=== PATIENT | female | born 1990 | race Caucasian/White ===

== ENCOUNTER 2018-06-28 07:01 | Emergency (ER) | payer BC ==
[2018-06-28 07:19] VITALS: BP 117/65
--- NOTE | 2018-06-28 07:37 | ED ---
Throat Pain/Nasal Congestion - HPI Summary HPI Summary: 28 yr old with the complaint of sinus pressure, post nasal drip, coughing productive of yellow sputum. The patient has been having chills, myalgias as well. She has a history of asthma, but does not feel this is active at this point. - History of Current Complaint Chief Complaint: UCRespiratory Time Seen by Provider: 06/28/18 07:31 - Allergies/Home Medications Allergies/Adverse Reactions: Allergies Allergy/AdvReac Type Severity Reaction Status Date / Time cefaclor Allergy Unknown Verified 06/28/18 07:13 Reaction Details Home Medications: Home Medications Lisinopril TAB* [Prinivil TAB*] 10 mg PO DAILY 06/28/18 [History Confirmed 06/28] Norgestimate-Ethinyl Estradiol [[place]] 1 tab PO DAILY 06/28/18 [History Confirmed 06/28/18] PMH/Surg Hx/FS Hx/Imm Hx Respiratory History: Reports: Hx Asthma - Surgical History Surgery Procedure, Year, and Place: T&A, WISDOM TEETH 2012 Infectious Disease History: No Infectious Disease History: Denies: Traveled Outside the [place] in Last 30 Days - Family History Known Family History: Positive: None - Social History Alcohol Use: Rare Substance Use Type: Reports: None Smoking Status (MU): Never Smoked Tobacco Review of Systems Positive: Sore Throat, Nasal Discharge Positive: Cough All Other Systems Reviewed And Are Negative: Yes Physical Exam Triage Information Reviewed: Yes Vital Signs On Initial Exam: Initial Vitals Temp Pulse Resp BP Pulse Ox 98.4 F 61 15 117/65 100 06/28/18 07:13 06/28/18 07:13 06/28/18 07:13 06/28/18 07:13 06/28/18 07:13 Vital Signs Reviewed: Yes Appearance: Positive: Well-Appearing, No Pain Distress Skin: Positive: Warm Head/Face: Positive: Normal Head/Face Inspection Eyes: Positive: EOMI ENT: Positive: Pharyngeal erythema, Nasal congestion, Nasal drainage, TMs normal , Sinus tenderness Neck: Positive: Nontender Respiratory/Lung Sounds: Positive: Clear to Auscultation, Breath Sounds Present Cardiovascular: Positive: RRR. Negative: Murmur Abdomen Description: Positive: Nontender Musculoskeletal: Positive: Strength/ROM Intact Neurological: Positive: Sensory/Motor Intact, Alert, Oriented to Person Place, Time, CN Intact II-III, Normal Gait, Speech Normal Psychiatric: Positive: Normal - [place] Coma Scale Best Eye Response: 4 - Spontaneous Best Motor Response: 6 - Obeys Commands Best Verbal Response: 5 - Oriented Coma Scale Total: 15 Diagnostics - Vital Signs Vital Signs Temp Pulse Resp BP Pulse Ox 06/28/18 07:13 98.4 F 61 15 117/65 100 - Laboratory Lab Statement: Any lab studies that have been ordered have been reviewed, and results considered in the medical decision making process. EENT Course/Dx - Course Course Of Treatment: 28 yr old female with Sinusitis. Rx with Biaxin. - Diagnoses Provider Diagnoses: Sinusitis Discharge - Sign-Out/Discharge Documenting (check all that apply): Patient Departure All imaging exams completed and their final reports reviewed: No Studies - Discharge Plan Condition: Good Disposition: HOME Prescriptions: Clarithromycin TAB* [Biaxin 500 MG TAB*] 500 mg PO BID #20 tab Patient Education Materials: Sinusitis (ED) Referrals: Sarath Saab MD [Primary Care Provider] - 2 Days - Billing Disposition and Condition Condition: GOOD Disposition: Home
--- OUTSIDE RECORDS SUMMARY | 2018-06-28 08:21 | XMS REPORT ---
:1990 External Reference #:[id number] Author Organization [facility] Address [address], [address] [place] [address] Phone [phone] Care Team Providers Name Role Phone Neena Mata MD, PHD Care Team Information Wordpress Developer Unavailable Neena Mata MD, PHD Primary Care Physician Unavailable Payers Type Date Identification Numbers Payment Provider Subscriber Commercial Policy Number: [id number] Bobous Marialuisa Branham PayID: [id number] [address] [address] [place] [address] Problems Date Description Provider Status Onset: 08/07/2017 Benign essential hypertension Kaden Morocho MD Active Onset: 12/25/2017 Immunization Neena Mata MD, PHD Active Onset: 12/25/2017 Venereal disease screening Neena Mata MD, PHD Active Family History Date Family Member(s) Problem(s) Comments Father Hypertension Mother No Current Problems First Sister No Current Problems Paternal Grandfather Throat Cancer Paternal Grandmother No Current Problems Maternal Grandfather Diabetes Maternal Grandmother Diabetes Maternal Uncles Colon Cancer Social History Type Date Description Comments Marital Status Single Lives With Alone Diet Patient follows no dietary restrictions Occupation Currently Working Cigarette Use Never Smoked Cigarettes ETOH Use Currently consumes alcohol socially Smoking Patient denies history of smoking Smoking Patient has never smoked Daily Caffeine Patient consumes minimal amounts of caffeine Allergies, Adverse Reactions, Alerts Date Description Reaction Status Severity Comments 12/25/2017 Cefaclor unsure active 08/14/2017 NKDA inactive 12/25/2017 NKDA inactive Medications Medication Date Status Form Strength Qnty SIG Indications Ordering Provider Sprintec 28 06/07/ Active Tablets 0.25-35mg- 90tabs 1 tab by mouth Z79.3 Adolfo, 2018 mcg every day enrico Chaudhary MD, PHD Lisinopril / Active Tablets 10mg 1 by mouth Unknown 0000 every day Multi 00/ Active Tablets 1 by mouth Unknown Vitamin 0000 every day Trinessa / Hx Tablets 0.18/0.215 1 by mouth Unknown (28) 0000 - /0.25 every day 06/07/ mg-35 mcg 2017 Medications Administered in Office Medication Date Status Form Strength Qnty SIG Indications Ordering Provider Theraputic Or Administered Injection Rick Mata 018 Man Chaudhary MD, PHD Immunizations CPT Code Status Date Vaccine Lot # [id number] Given 05/14/2018 Influenza Virus Vaccine, Quadrivalent, 36 Mos+, .5ML [id number] Given 12/25/2017 Gardasil [id number] Given 12/25/2017 Gardasil [id number] Vital Signs Date Vital Result Comment 06/07/2018 BP Systolic 142 mmHg BP Diastolic 68 mmHg Body Temperature 97.5 F Heart Rate 63 /min Respiratory Rate 18 /min Height 63 inches 5'3" Weight 171.00 lb BMI (Body Mass Index) 30.3 kg/m2 BSA (Body Surface Area) 1.81 m2 [place] body weight in kilograms 52 O2 % BldC Oximetry 95 % 12/25/2017 BP Systolic 119 mmHg BP Diastolic 73 mmHg Body Temperature 96.3 F Heart Rate 66 /min Respiratory Rate 16 /min Height 63 inches 5'3" Weight 206.00 lb BMI (Body Mass Index) 36.5 kg/m2 BSA (Body Surface Area) 1.96 m2 [place] body weight in kilograms 52 O2 % BldC Oximetry 98 % 12/11/2017 BP Systolic Sitting Left Arm 146 mmHg BP Diastolic Sitting Left Arm 70 mmHg Heart Rate 82 /min Respiratory Rate 16 /min Height 63 inches 5'3" Weight 213.00 lb BMI (Body Mass Index) 37.7 kg/m2 BSA (Body Surface Area) 1.99 m2 [place] body weight in kilograms 52 08/14/2017 BP Systolic Sitting Left Arm 132 mmHg BP Diastolic Sitting Left Arm 88 mmHg Heart Rate 77 /min Respiratory Rate 16 /min Height 63 inches 5'3" Weight 223.00 lb BMI (Body Mass Index) 39.5 kg/m2 BSA (Body Surface Area) 2.03 m2 [place] body weight in kilograms 52 Results Test Date Test Result H/L Range Note Laboratory test 12/25/2017 Treponema Antibody Negative Negative 1 finding [place] HIV Screen 4TH Gen 12/25/2017 HIV Screen 4th Non Reactive Non Reactive 1 , 2 Reflex Generation wRfx Laboratory test 12/25/2017 Hepatitis B Core Negative Negative 1, 3 finding Antibody-IgM HSV Type I Specific Igg < 0.91 index 0.00-0.90 1, 4 HSV II,Igg,Type Specific <0.91 index 0.00-0.90 1, 5 Genital Culture W/ Gram 12/25/2017 Gram Stain GRAM STAIN INDIC <SEE 1, 6 Stain NOTE> Gram Stain MODERATE GR POS. <SEE NOTE> 1, 7 Gram Stain NO WHITE BLOOD C <SEE NOTE> 1, 8 Genital Culture GENITAL ALEXIS 1 Chlmaydia/GC/Trichomonas PCR 12/25/2017 Trichomonas vaginalis Negative Negative 1 PCR Chlamydia trachomatis, PCR Negative Negative 1 Neisseria gonorrhoeae, PCR Negative Negative 1, 9 TSH Reflex FT4 And/Or FT3 11/27/2017 Thyroid Stim Hormone 2.04 uIU/mL 0.30-4.20 10 Reflex add FT3? Y 10 Reflex add FT4? Y 10 1 Z11.3 2 Performed at: [address] [id number] [employer] Specialist: Celine Menchaca MD, Phone: [phone] Performed at: [address] [id number] [employer] Specialist: Akhil Alexander MD, Phone: [phone] Performed at: [address] [id number] [employer] Specialist: Celine Menchaca MD, Phone: [phone] Negative <0.91 Equivocal 0.91 - 1.09 Positive >1.09 Note: Negative indicates no antibodies detected to HSV-1. Equivocal may suggest early infection. If clinically appropriate, retest at later date. Positive indicates antibodies detected to HSV-1. Performed at: [address] [id number] [employer] Specialist: Celine Menchaca MD, Phone: [phone] Negative <0.91 Equivocal 0.91 - 1.09 Positive >1.09 Note: Negative indicates no antibodies detected to HSV-2. Equivocal may suggest early infection. If clinically appropriate, retest at later date. Positive indicates antibodies detected to HSV-2. 6 GRAM STAIN INDICATES NORMAL GENITAL ALEXIS 7 MODERATE GR POS. BACILLI SUGGESTIVE OF LACTOBACILLUS SP. 8 NO WHITE BLOOD CELLS 9 A negative result for either C. trachomatis and/or N. gonorrhoeae does not preclued an infection because results are dependent on adequate specimen collection, absence of inhibitors, and sufficient DNA to be detected. 10 I10 Procedures Date CPT Code Description Status 12/25/2017 53146 Theraputic Or Diagnostic Injection Completed 09/04/2017 41982 ECHO Transthoracic Inc Performance Continuous Completed Electrocardio 08/14/2017 82485 EKG-Tracing And Report Completed 08/22/2005 73634 Fracture-closed finger or thumb Completed Encounters Type Date Location Provider CPT E/M Dx Office Visit 06/07/2018 1:30p [place], [address] Z00.00 Women's Health PHD Z79.3 Office Visit 12/25/2017 1:00p [place], [address] Z11.3 Women's Health PHD Z23 Office Visit 12/11/2017 11:30a [place] [address] I10 E66.09 R07.2 R00.2 Office Visit 08/14/2017 11:15a [place] [address] R07.2 R01.1 E66.09 I10 R60.0 Plan of Care 06/07/2018 - Neena Mata MD, PHDZ00.00 Encntr for general adult medical exam w/o abnormal rfrxobvlQ09.3 long-term (current) use of hormonal contraceptivesNew Medication:Sprintec 28 0.25-35 mg-mcg
== END 2018-06-28 07:46 | disposition home or self-care (01) ==
LOC: UCCORT 07:01
DX: J32.9 Chronic sinusitis, unspecified (principal); Z88.1 Allergy status to other antibiotic agents
CPT/HCPCS: 99212; G0463